=== PATIENT | female | born 1980 | race Caucasian/White ===

== ENCOUNTER → 2021-03-27 | Outpatient (CLI) | payer OTHER ==
--- NOTE | 2021-03-27 08:59 | RAD ---
EXAM: Bilateral screening mammogram. HISTORY: 40-year-old female presents for screening mammography. TECHNIQUE: Full-field digital craniocaudal and mediolateral oblique views of both breasts are obtaine d for evaluation. Computer aided detection was applied. COMPARISON: None. This is a baseline mammogram. BREAST PARENCHYMAL DENSITY: Level B - Scattered fibroglandular densities. FINDINGS: There is a circumscribed nodule within the 1:00 position of the left breast centered approx imately 3 cm from the nipple. There is an asymmetry within the posterior aspect of the right breast s lightly medial to the nipple line in the craniocaudal projection, likely due to summation artifact gi yarelis the absence convincing correlate in the mediolateral oblique projection. There are areas of benig n asymmetry within both breasts which do not persist between projections. There are multiple benign c alcifications. IMPRESSION: BI-RADS Category 0: Incomplete. Additional imaging needed. RECOMMENDATION: Further evaluation with full field true lateral views of both breasts, a spot driss macarena craniocaudal view of asymmetry within the posterior right breast and left breast sonography to a ssess a nodule at the 1:00 position approximately 3 cm from nipple is recommended. If your mammogram demonstrates that you have dense breast tissue, which could hide abnormalities, and if you have other risk factors for breast cancer that have been identified, you might benefit from s upplemental screening tests that may be suggested by your ordering physician. Dense breast tissue, i n and of itself, is a relatively common condition. This information is not provided to cause undue c oncern, but rather to raise your awareness and to promote discussion with your physician regarding th e presence of other risk factors, in addition to dense breast tissue. A report of your mammography re sults will be sent to you and your physician. You should contact your physician if you have any ques tions or concerns regarding this report. Mammography is a sensitive method for finding small breast cancers, but it does not detect them all a nd is not a substitute for careful clinical examination. A negative mammogram does not negate a clin ically suspicious finding and should not result in delay in biopsying a clinically suspicious abnorma lity. PQRS compliance statement - Patient information was entered into a reminder system with a target due date for the next mammogram. "Our facility is accredited by the [employer] Mammography [employer]." Electronically signed by: Navya Forde MD (03/27/2021 8:56 AM) [id number]
== END ==
LOC: MAMMO 08:16
PROVIDERS: ATTEND Obstetrics & Gynecology
DX: Z12.31 Encounter for screening mammogram for malignant neoplasm of breast (principal)
CPT/HCPCS: 77067

== ENCOUNTER → 2021-04-09 | Outpatient (CLI) | payer OTHER ==
--- NOTE | 2021-04-15 09:03 | RAD ---
DATE: 04/09/2021 EXAM: DIGITAL DIAGNOSTIC BILATERAL, BREAST LEFT HISTORY: Recall from screening mammogram for right breast architectural distortion and left breast mass. COMPARISON: Screening mammogram 03/27/2021. This study was interpreted with the benefit of Computerized Aided Detection (CAD). Breast Density: SCATTERED The breast parenchyma shows scattered fibroglandular densities. Breast parenchyma level B. FINDINGS: Right breast: The architectural distortion in the posterior right breast along the posterior nipple line on CC view resolves with spot compression. There is no abnormality on ML view. Left breast: The 8 mm left breast mass at 1:00 3 cm from the nipple persists on ML view. ULTRASOUND: The upper outer left breast was imaged in the area of concern. At 1 o'clock, 2.5 cm from the nipple there is an ovoid hypoechoic mass measuring 8 x 7 x 5 mm. This is predominantly circumscribed, however there is suggestion of microlobulation in some areas. The mass is parallel in orientation. No internal vascularity. There are no abnormal lymph nodes in the left axilla. IMPRESSION: 1. No evidence of malignancy in the right breast. 2. 8 mm hypoechoic mass in the left breast at 1:00, 2.5 cm posterior to the nipple. 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 The finding and options of 6 month follow-up ultrasound versus ultrasound-guided biopsy were discussed with the patient. The patient wishes to pursue biopsy at this time. A displaced message regarding findings and recommendations was left at Dr. Torres's office with a return phone number. BI-RADS CATEGORY: BI-RADS 4A-low suspicion for malignancy. Biopsy should be considered. RECOMMENDED FOLLOW-UP: BIO BIOPSY RECOMMENDED PQRS compliance statement: Patient information was entered into a reminder system with a target due date for the next mammogram. Mammography is a sensitive method for finding small breast cancers, but it does not detect them all and is not a substitute for careful clinical examination. A negative mammogram does not negate a clinically suspicious finding and should not result in delay in biopsying a clinically suspicious abnormality. "Our facility is accredited by the [employer] Mammography [employer]." MEDD
== END ==
LOC: MAMMO 15:51
PROVIDERS: ATTEND Obstetrics & Gynecology
DX: R92.8 Other abnormal and inconclusive findings on diagnostic imaging of breast (principal); N63.21 Unspecified lump in the left breast, upper outer quadrant
CPT/HCPCS: 76641; 77066

== ENCOUNTER → 2021-11-05 | Outpatient (CLI) | payer OTHER ==
--- NOTE | 2021-11-05 13:13 | RAD ---
EXAM: Left breast sonogram. HISTORY: 41-year-old female presents for follow-up evaluation of a left breast nodule demonstrated on a sonogram performed 04/09/2021. TECHNIQUE: Sonographic imaging of the left breast targeted to the site of prior concern was performed . COMPARISON: 04/09/2021. FINDINGS: There has been no significant change in a circumscribed solid hypoechoic lesion within the 1:00 position 2.5 SD of the nipple measuring 9 mm in maximum dimension, allowing for differences in i maging technique. This demonstration no internal blood flow. No additional lesion is seen. IMPRESSION: 1. Stable 9 mm nodule within the 1:00 position of the left breast. The sonographic appearance and int erval stability favors a benign fibroadenoma. 2. BI-RADS Category 3: Probably benign finding(s). Repeat short term follow up with a left breast son ogram in 6 months is recommended to confirm longer-term stability and correspond with the previously established bilateral mammography interval. Electronically signed by: Navya Forde MD (11/05/2021 1:10 PM) [id number]
== END ==
LOC: US 10:38
PROVIDERS: ATTEND Obstetrics & Gynecology
DX: N63.21 Unspecified lump in the left breast, upper outer quadrant (principal)
CPT/HCPCS: 76641